=== PATIENT | male | born 1940 | race Caucasian/White ===

== ENCOUNTER 2017-05-06 12:18 | Inpatient (IN) | payer MEDICARE, OTHER ==
[~2017-05-06] VITALS: Ht 175.3 cm; Wt 68.0 kg
[2017-05-06] MEDS ORDERED: SODIUM CHLORIDE 0.9% 1,000 ML IV ONE (12:45)
[2017-05-06] MEDS ORDERED: SODIUM CHLORIDE FLUSH 10ML SYR IVF ONE (13:00)
[2017-05-06] MEDS ORDERED: ASPIRIN 81 MG TABLET CHEW PO ONE (13:00)
[2017-05-06 13:14] LABS: BASOPHILS % (AUTO) 0 % (0-1); EOSINOPHILS # (AUTO) 0.02 x10^3/uL (0-0.4); EOSINOPHILS % (AUTO) 0 % (1-7); LYMPHOCYTES # (AUTO) 0.88 x10^3/uL (1-3.4); LYMPHOCYTES % (AUTO) 10 % (22-44); MD NO; MEAN CORPUSCULAR HEMOGLOBIN 26.3 pg (27.5-34.5); MEAN CORPUSCULAR HGB CONC 32.6 g/dL (33.2-36.2); MEAN CORPUSCULAR VOLUME 80.8 fL (81-97); MEAN PLATELET VOLUME 7.4 fL (7.4-10.4); MONOCYTES # (AUTO) 0.99 x10^3/uL (0.2-0.8); MONOCYTES % (AUTO) 11 % (2-9); NEUTROPHILS # (AUTO) 6.77 x10^3/uL (1.8-6.8); NEUTROPHILS % (AUTO) 78 % (42-75); PLATELET COUNT 345 x10^3/uL (130-400); RED BLOOD COUNT 3.73 x10^6/uL (4.38-5.82); RED CELL DISTRIBUTION WIDTH 16.6 % (9.4-14.8)
[2017-05-06 13:25] LABS: ALBUMIN 3.2 g/dL (3.4-5.0); ANION GAP 11 mmol/L (5-15); CALCIUM 8.3 mg/dL (8.5-10.1); CHLORIDE 101 mmol/L (98-107); CREATININE 1.38 mg/dL (0.7-1.3)
[2017-05-06 13:28] LABS: TROPONIN I < 0.015 ng/mL (0.000-0.045)
[2017-05-06] MEDS ORDERED: SODIUM CHLORIDE 0.9% 1,000ML IVBOLUS ONE (14:00)
[2017-05-06] MEDS ORDERED: KETOROLAC 30 MG/1 ML IVPush ONE (14:30)
[2017-05-06] MEDS ORDERED: KETOROLAC 30 MG/1 ML ONE (15:25)
[2017-05-06] MEDS ORDERED: SODIUM CHLORIDE FLUSH 10ML SYR IVF PRN (16:30)
[2017-05-06] MEDS ORDERED: LOSA100T6 PO (16:31)
[2017-05-06] MEDS ORDERED: DIVA250T14 PO (16:31)
[2017-05-06] MEDS ORDERED: CLOP75TA PO (16:31)
[2017-05-06] MEDS ORDERED: LORA10TA3 PO (16:31)
[2017-05-06] MEDS ORDERED: ASPI-496 PO (16:31)
[2017-05-06] MEDS ORDERED: HYDR12.53 PO (16:31)
[2017-05-06] MEDS ORDERED: CITA20TA9 PO (16:31)
[2017-05-06] MEDS ORDERED: MINE120C TP (16:31)
[2017-05-06] MEDS ORDERED: PRAV20TA2 PO (16:33)
[2017-05-06] MEDS ORDERED: METO25TA35 PO (16:33)
[2017-05-06] MEDS ORDERED: TRAZ50TA18 PO (16:33)
[2017-05-06] MEDS ORDERED: TAMS0.4C2 PO (16:33)
[2017-05-06] MEDS ORDERED: ACET-1600 PO (16:33)
[2017-05-06] MEDS ORDERED: SODIUM CHLORIDE 0.9% 1,000 ML IV SCH (18:12)
[2017-05-06] MEDS ORDERED: hydrALAzine 20 MG/ML, 1ML IVPush PRN (18:30)
[2017-05-06] MEDS ORDERED: ONDANSETRON 2MG/ML, 2ML IVPush PRN (18:30)
[2017-05-06] MEDS ORDERED: ACETAMINOPHEN 325 MG TABLET PO PRN (18:30)
[2017-05-06] MEDS ORDERED: HYDROcodone/APAP 5/325 TABLET PO PRN (18:30)
[2017-05-06] MEDS ORDERED: morphine SULFATE 10 MG/ML, 1ML IVPush PRN (18:30)
[2017-05-06] MEDS ORDERED: ENOXAPARIN 40 MG/0.4 ML SQ SCH (18:30)
[2017-05-06 19:04] LABS: FREE T4 (FREE THYROXINE) 0.99 ng/dL (0.76-1.46); THYROID STIMULATING HORMONE 2.71 mIU/L (0.358-3.740)
[2017-05-06 20:02] VITALS: BP 149/72
[2017-05-06 20:49] LABS: MICROSCOPIC NOT IND
[2017-05-06] MEDS ORDERED: PRAVASTATIN 20 MG TABLET PO SCH (21:00)
[2017-05-06] MEDS ORDERED: TAMSULOSIN 0.4 MG CAP.ER.24H PO SCH (21:00)
[2017-05-06] MEDS: PLEASE ENTER HEIGHT AND WEIGHT MC SCH ×2 (21:00→21:56)
[2017-05-06] MEDS ORDERED: TRAZODONE 50MG TABLET PO SCH (21:00)
[2017-05-06 21:03] LABS: CULTURE INDICATED? NO
[2017-05-06 21:25] LABS: TROPONIN I < 0.015 ng/mL (0.000-0.045)
[2017-05-06] MEDS ORDERED: PRAVASTATIN 40 MG TABLET ONE (21:59)
[2017-05-06] MEDS: METOPROLOL TARTRATE 25 MG TABLET PO SCH (22:01)
[2017-05-06] MEDS: DIVALPROEX 250 MG TAB.ER.24H PO SCH (22:01)
[2017-05-07 01:53] VITALS: BP 116/57
[2017-05-07] MEDS: PLEASE ENTER HEIGHT AND WEIGHT MC SCH (05:00)
[2017-05-07 05:31] LABS: CHLORIDE 105 mmol/L (98-107)
[2017-05-07 05:35] LABS: BASOPHILS # (AUTO) 0.01 x10^3/uL (0-0.1); BASOPHILS % (AUTO) 0 % (0-1); EOSINOPHILS % (AUTO) 2 % (1-7); LYMPHOCYTES # (AUTO) 0.57 x10^3/uL (1-3.4); LYMPHOCYTES % (AUTO) 9 % (22-44); MD NO; MEAN CORPUSCULAR HEMOGLOBIN 26.9 pg (27.5-34.5); MEAN CORPUSCULAR HGB CONC 33.2 g/dL (33.2-36.2); MEAN CORPUSCULAR VOLUME 80.9 fL (81-97); MEAN PLATELET VOLUME 7.6 fL (7.4-10.4); MONOCYTES % (AUTO) 12 % (2-9); NEUTROPHILS # (AUTO) 5.18 x10^3/uL (1.8-6.8); NEUTROPHILS % (AUTO) 78 % (42-75); PLATELET COUNT 305 x10^3/uL (130-400); RED BLOOD COUNT 3.22 x10^6/uL (4.38-5.82); RED CELL DISTRIBUTION WIDTH 16.2 % (9.4-14.8)
[2017-05-07 05:38] LABS: ALANINE AMINOTRANSFERASE 13 U/L (12-78); ALBUMIN 2.8 g/dL (3.4-5.0); ANION GAP 10 mmol/L (5-15); BILIRUBIN,TOTAL 0.4 mg/dL (0.2-1.0); CALCIUM 7.6 mg/dL (8.5-10.1); CREATININE 1.35 mg/dL (0.7-1.3); TOTAL PROTEIN 6.1 g/dL (6.4-8.2); TROPONIN I < 0.015 ng/mL (0.000-0.045)
[2017-05-07 05:40] LABS: % IRON SATURATION 5 % (20-55); ALKALINE PHOSPHATASE 117 U/L (45-117); IRON LEVEL 17 mcg/dL (65-175); TOTAL IRON BINDING CAPACITY 343 mcg/dL (250-450)
[2017-05-07 07:16] VITALS: BP 117/65
[2017-05-07] MEDS ORDERED: CLOPIDOGREL 75 MG TABLET PO SCH (09:00)
[2017-05-07] MEDS ORDERED: ASPIRIN 81 MG TABLET EC PO SCH (09:00)
[2017-05-07] MEDS ORDERED: TEMPLATE NON-FORMULARY MED. (Losartan Potassium** 100 MG) PO SCH (09:00)
[2017-05-07] MEDS ORDERED: LOSARTAN 50MG TABLET PO SCH (09:00)
[2017-05-07] MEDS ORDERED: HYDROCHLOROTHIAZIDE 12.5 MG CAPSULE PO SCH (09:00)
[2017-05-07] MEDS ORDERED: MINERA CRM, 60GM TP SCH (09:00)
[2017-05-07] MEDS ORDERED: CITALOPRAM 20 MG TABLET PO SCH (09:00)
[2017-05-07] MEDS ORDERED: LORATADINE 10 MG TABLET PO SCH (09:00)
[2017-05-07] MEDS ORDERED: REGADENOSON 0.4 MG/5 ML SYRINGE ONE (10:16)
[2017-05-07] MEDS: METOPROLOL TARTRATE 25 MG TABLET PO SCH (12:47)
[2017-05-07] MEDS: DIVALPROEX 250 MG TAB.ER.24H PO SCH (12:48)
[2017-05-07 13:03] VITALS: BP 123/69
[2017-05-07] MEDS ORDERED: FERR325T18 PO (14:53)
[2017-05-07] MEDS ORDERED: PNEUMOCOCCAL 23 VACCINE IM-VACC ONE (16:30)
[2017-05-07] MEDS ORDERED: FLU VACC QS2017-18 (36MOS+) UP/PF 0.5 ML IM-VACC ONE (16:30)
== END 2017-05-07 17:35 | disposition home or self-care (01) | DRG 303 ==
LOC: ED 15:40 → EDIP 16:22 → 5SO 19:45
PROVIDERS: ADMIT Internal Medicine; ATTEND Internal Medicine
DX: I25.119 Atherosclerotic heart disease of native coronary artery with unspecified angina pectoris (principal); N17.9 Acute kidney failure, unspecified; E11.9 Type 2 diabetes mellitus without complications; D64.9 Anemia, unspecified; E78.5 Hyperlipidemia, unspecified; F03.90 Unspecified dementia, unspecified severity, without behavioral disturbance, psychotic disturbance, mood disturbance, and anxiety; I25.2 Old myocardial infarction; F32.9 Major depressive disorder, single episode, unspecified; N40.0 Benign prostatic hyperplasia without lower urinary tract symptoms; I10 Essential (primary) hypertension; Z95.5 Presence of coronary angioplasty implant and graft; Z87.891 Personal history of nicotine dependence; Z90.49 Acquired absence of other specified parts of digestive tract; Z23 Encounter for immunization
CPT/HCPCS: 36415; 71046; 78452; 80048; 80053; 81003; 82040; 83540; 83550; 83735; 83880; 84100; 84439; 84443; 84484; 85025; 90686; 90732; 93005; 93017; 93306; 96361; 96374; J1650; J1885; J2785; A9502; C9898; J7030

== ENCOUNTER 2017-06-08 14:37 | Inpatient (IN) | payer MEDICARE, OTHER ==
[~2017-06-08] VITALS: Ht 170.2 cm; Wt 64.6 kg
[~2017-06-08 14:37] MED LIST: ACET-1600 PO; ASPI-496 PO; CITA20TA9 PO; CLOP75TA PO; DIVA250T14 PO; DOCU-131 PO; ERGO500017 PO; FERR325T18 PO; HYDR12.53 PO; LORA10TA3 PO; LOSA100T6 PO; METO25TA35 PO; MINE120C TP; PRAV20TA2 PO; TAMS0.4C2 PO; TRAM-47 PO; TRAZ50TA18 PO
[2017-06-08] MEDS ORDERED: HYDR12.53 PO (14:59)
[2017-06-08] MEDS ORDERED: SODIUM CHLORIDE FLUSH 10ML SYR IVF ONE (15:00)
[2017-06-08 15:36] LABS: BASOPHILS % (AUTO) 0 % (0-1); EOSINOPHILS # (AUTO) 0.01 x10^3/uL (0-0.4); EOSINOPHILS % (AUTO) 0 % (1-7); LYMPHOCYTES # (AUTO) 0.38 x10^3/uL (1-3.4); LYMPHOCYTES % (AUTO) 3 % (22-44); MD NO; MEAN CORPUSCULAR HEMOGLOBIN 26.3 pg (27.5-34.5); MEAN CORPUSCULAR HGB CONC 32.2 g/dL (33.2-36.2); MEAN CORPUSCULAR VOLUME 81.6 fL (81-97); MEAN PLATELET VOLUME 7.6 fL (7.4-10.4); MONOCYTES # (AUTO) 0.68 x10^3/uL (0.2-0.8); MONOCYTES % (AUTO) 6 % (2-9); NEUTROPHILS # (AUTO) 11.05 x10^3/uL (1.8-6.8); NEUTROPHILS % (AUTO) 91 % (42-75); PLATELET COUNT 314 x10^3/uL (130-400); RED BLOOD COUNT 3.66 x10^6/uL (4.38-5.82); RED CELL DISTRIBUTION WIDTH 17.5 % (9.4-14.8)
[2017-06-08 15:43] LABS: INTERNATIONAL NORMALIZED RATIO 1.05 (0.93-1.1); PROTHROMBIN TIME 10.8 Seconds (9.6-11.5)
[2017-06-08 15:46] LABS: ALANINE AMINOTRANSFERASE 16 U/L (12-78); ANION GAP 12 mmol/L (5-15); CALCIUM 7.9 mg/dL (8.5-10.1); CHLORIDE 108 mmol/L (98-107); CREATININE 2.24 mg/dL (0.7-1.3)
[2017-06-08 15:50] LABS: ALKALINE PHOSPHATASE 128 U/L (45-117); BILIRUBIN,TOTAL 0.5 mg/dL (0.2-1.0); TOTAL PROTEIN 7.2 g/dL (6.4-8.2)
[2017-06-08 15:53] LABS: TROPONIN I 0.178 ng/mL (0.000-0.045)
[2017-06-08] MEDS ORDERED: CEFTRIAXONE PMX 1GM/50ML 50 ML IVPB ONE (16:00)
[2017-06-08] MEDS ORDERED: SODIUM CHLORIDE 0.9% 1,000ML IVBOLUS ONE (16:00)
[2017-06-08] MEDS ORDERED: AZITHROMYCIN 500 MG in SODIUM CHLORIDE 0.9% 250 ML IVPB ONE (16:00)
[2017-06-08] MEDS ORDERED: CEFTRIAXONE PMX 1GM/50ML 50 ML ONE (16:54)
[2017-06-08] MEDS ORDERED: SODIUM CHLORIDE FLUSH 10ML SYR IVF PRN (17:00)
[2017-06-08] MEDS ORDERED: NITROGLYCERIN 0.4 MG BOTTLE (25 TABS) SL PRN (17:30)
[2017-06-08] MEDS ORDERED: DEXTROSE 4 GM TAB.CHEW PO PRN (17:30)
[2017-06-08] MEDS ORDERED: DEXTROSE 50%, 50ML SYRINGE IVPush PRN (17:30)
[2017-06-08] MEDS ORDERED: ONDANSETRON 2MG/ML, 2ML IVPush PRN (17:30)
[2017-06-08] MEDS ORDERED: BISACODYL 10 MG SUPP PR PRN (17:30)
[2017-06-08] MEDS ORDERED: LABETALOL 5MG/ML, 20ML IVPush PRN (17:30)
[2017-06-08] MEDS ORDERED: hydrALAzine 20 MG/ML, 1ML IVPush PRN (17:30)
[2017-06-08] MEDS ORDERED: SODIUM CHLORIDE 0.9% 1,000 ML IV SCH (17:30)
[2017-06-08] MEDS ORDERED: ACETAMINOPHEN 325 MG TABLET PO PRN (17:30)
[2017-06-08] MEDS ORDERED: GLUCAGON 1 MG IM PRN (17:30)
[2017-06-08] MEDS ORDERED: CEFTRIAXONE PMX 1GM/50ML 50 ML IV SCH (18:00)
[2017-06-08] MEDS ORDERED: AZITHROMYCIN 500 MG in SODIUM CHLORIDE 0.9% 250 ML IV SCH (18:00)
[2017-06-08] MEDS ORDERED: PHARMACY MAY ADJ FOR RENAL FX MC PRN (18:00)
[2017-06-08 18:27] LABS: TROPONIN I 0.136 ng/mL (0.000-0.045)
[2017-06-08 19:55] VITALS: BP 110/71
[2017-06-08 20:30] VITALS: BP 110/70
[2017-06-08 21:00] VITALS: BP 110/70
[2017-06-08] MEDS ORDERED: PRAVASTATIN 40 MG TABLET ONE (21:30)
[2017-06-08] MEDS: ERGOCALCIFEROL 50,000 UNIT CAPSULE PO SCH (21:36)
[2017-06-08] MEDS: TAMSULOSIN 0.4 MG CAP.ER.24H PO SCH (21:36)
[2017-06-08] MEDS: HEPARIN 5,000 UNITS/ML, 1ML SQ SCH (21:36)
[2017-06-08] MEDS: PRAVASTATIN 20 MG TABLET PO SCH (21:37)
[2017-06-08] MEDS: SODIUM CHLORIDE FLUSH 10ML SYR IVF SCH (21:37)
[2017-06-08] MEDS: FERROUS SULFATE 325 MG TABLET PO SCH (21:38)
[2017-06-08] MEDS: INSULIN LISPRO 100 UNITS/ML, PEN SQ-INSULIN SCH (21:39)
[2017-06-08 22:18] LABS: MICROSCOPIC AUTO
[2017-06-08 22:29] LABS: CULTURE INDICATED? NO
[2017-06-08 23:54] LABS: TROPONIN I 0.132 ng/mL (0.000-0.045)
[2017-06-09 00:42] VITALS: BP 94/61
[2017-06-09 05:04] LABS: BASOPHILS # (AUTO) 0.01 x10^3/uL (0-0.1); BASOPHILS % (AUTO) 0 % (0-1); EOSINOPHILS # (AUTO) 0.23 x10^3/uL (0-0.4); EOSINOPHILS % (AUTO) 3 % (1-7); LYMPHOCYTES # (AUTO) 0.65 x10^3/uL (1-3.4); LYMPHOCYTES % (AUTO) 9 % (22-44); MD NO; MEAN CORPUSCULAR HEMOGLOBIN 26.3 pg (27.5-34.5); MEAN CORPUSCULAR HGB CONC 32.2 g/dL (33.2-36.2); MEAN CORPUSCULAR VOLUME 81.8 fL (81-97); MEAN PLATELET VOLUME 7.2 fL (7.4-10.4); MONOCYTES # (AUTO) 0.74 x10^3/uL (0.2-0.8); MONOCYTES % (AUTO) 10 % (2-9); NEUTROPHILS # (AUTO) 5.84 x10^3/uL (1.8-6.8); NEUTROPHILS % (AUTO) 78 % (42-75); PLATELET COUNT 280 x10^3/uL (130-400); RED BLOOD COUNT 3.19 x10^6/uL (4.38-5.82); RED CELL DISTRIBUTION WIDTH 18.7 % (9.4-14.8)
[2017-06-09 05:15] LABS: CHLORIDE 116 mmol/L (98-107)
[2017-06-09 05:30] LABS: ALANINE AMINOTRANSFERASE 14 U/L (12-78); ALBUMIN 2.5 g/dL (3.4-5.0); ALKALINE PHOSPHATASE 101 U/L (45-117); ANION GAP 11 mmol/L (5-15); BILIRUBIN,TOTAL 0.4 mg/dL (0.2-1.0); CALCIUM 7.6 mg/dL (8.5-10.1); CREATININE 1.84 mg/dL (0.7-1.3); TOTAL PROTEIN 6.1 g/dL (6.4-8.2)
[2017-06-09] MEDS: HEPARIN 5,000 UNITS/ML, 1ML SQ SCH ×3 (06:11→20:51)
[2017-06-09] MEDS: INSULIN LISPRO 100 UNITS/ML, PEN SQ-INSULIN SCH ×4 (07:00→20:50)
[2017-06-09 07:16] VITALS: BP 93/56
[2017-06-09] MEDS: SODIUM CHLORIDE FLUSH 10ML SYR IVF SCH ×2 (09:00→21:00)
[2017-06-09] MEDS: ASPIRIN 81 MG TABLET EC PO SCH (09:07)
[2017-06-09] MEDS: D5%-0.45% NACL 1,000 ML IV SCH (09:07)
[2017-06-09] MEDS: CITALOPRAM 20 MG TABLET PO SCH (09:08)
[2017-06-09] MEDS: CLOPIDOGREL 75 MG TABLET PO SCH (09:08)
[2017-06-09] MEDS: ACETAMINOPHEN 500 MG TABLET PO SCH ×2 (09:08→20:51)
[2017-06-09] MEDS: FERROUS SULFATE 325 MG TABLET PO SCH ×3 (09:08→20:51)
[2017-06-09] MEDS: LORATADINE 10 MG TABLET PO SCH (09:08)
[2017-06-09 15:09] VITALS: BP 119/65
[2017-06-09] MEDS: CEFTRIAXONE PMX 1GM/50ML 50 ML IV SCH (17:50)
[2017-06-09] MEDS: AZITHROMYCIN 500 MG in SODIUM CHLORIDE 0.9% 250 ML IV SCH (18:25)
[2017-06-09 18:34] VITALS: BP 115/68
[2017-06-09] MEDS: TAMSULOSIN 0.4 MG CAP.ER.24H PO SCH (20:51)
[2017-06-09] MEDS: PRAVASTATIN 20 MG TABLET PO SCH (21:00)
[2017-06-09] MEDS ORDERED: PRAVASTATIN 40 MG TABLET ONE (23:32)
[2017-06-10 00:56] VITALS: BP 130/76
[2017-06-10] MEDS: D5%-0.45% NACL 1,000 ML IV SCH (03:30)
[2017-06-10 05:40] LABS: BASOPHILS % (AUTO) 0 % (0-1); EOSINOPHILS # (AUTO) 0.53 x10^3/uL (0-0.4); EOSINOPHILS % (AUTO) 7 % (1-7); LYMPHOCYTES # (AUTO) 0.94 x10^3/uL (1-3.4); LYMPHOCYTES % (AUTO) 12 % (22-44); MD NO; MEAN CORPUSCULAR HEMOGLOBIN 26.8 pg (27.5-34.5); MEAN CORPUSCULAR HGB CONC 32.8 g/dL (33.2-36.2); MEAN CORPUSCULAR VOLUME 81.7 fL (81-97); MEAN PLATELET VOLUME 7.1 fL (7.4-10.4); MONOCYTES % (AUTO) 9 % (2-9); NEUTROPHILS # (AUTO) 5.71 x10^3/uL (1.8-6.8); NEUTROPHILS % (AUTO) 72 % (42-75); PLATELET COUNT 306 x10^3/uL (130-400); RED BLOOD COUNT 3.14 x10^6/uL (4.38-5.82); RED CELL DISTRIBUTION WIDTH 18.2 % (9.4-14.8)
[2017-06-10 05:44] LABS: ALANINE AMINOTRANSFERASE 16 U/L (12-78); ALBUMIN 2.4 g/dL (3.4-5.0); ANION GAP 9 mmol/L (5-15); CALCIUM 7.3 mg/dL (8.5-10.1); CHLORIDE 111 mmol/L (98-107); CREATININE 1.43 mg/dL (0.7-1.3)
[2017-06-10 05:46] LABS: ALKALINE PHOSPHATASE 111 U/L (45-117); BILIRUBIN,TOTAL 0.3 mg/dL (0.2-1.0); TOTAL PROTEIN 5.7 g/dL (6.4-8.2)
[2017-06-10] MEDS: HEPARIN 5,000 UNITS/ML, 1ML SQ SCH ×3 (06:28→22:40)
[2017-06-10] MEDS ORDERED: POTASSIUM CHLORIDE 20 MEQ PACKET PO ONE (07:30)
[2017-06-10] MEDS: INSULIN LISPRO 100 UNITS/ML, PEN SQ-INSULIN SCH ×4 (07:43→20:22)
[2017-06-10] MEDS: ASPIRIN 81 MG TABLET EC PO SCH (08:47)
[2017-06-10] MEDS: FERROUS SULFATE 325 MG TABLET PO SCH ×3 (08:47→20:17)
[2017-06-10] MEDS: ACETAMINOPHEN 500 MG TABLET PO SCH ×2 (08:47→20:17)
[2017-06-10] MEDS: CITALOPRAM 20 MG TABLET PO SCH (08:47)
[2017-06-10] MEDS: CLOPIDOGREL 75 MG TABLET PO SCH (08:47)
[2017-06-10] MEDS: SODIUM CHLORIDE FLUSH 10ML SYR IVF SCH ×2 (08:47→20:18)
[2017-06-10] MEDS: LORATADINE 10 MG TABLET PO SCH (08:47)
[2017-06-10] MEDS: D5%-0.45NACL+KCL 20MEQ 1,000 ML IV SCH (08:51)
[2017-06-10 08:53] VITALS: BP 157/73
[2017-06-10 09:36] VITALS: BP 118/77
[2017-06-10] MEDS ORDERED: METOPROLOL 1 MG/ML, 5ML ONE (09:39)
[2017-06-10 09:48] VITALS: BP 102/69
[2017-06-10] MEDS ORDERED: METOPROLOL 1 MG/ML, 5ML IVPush ONE (10:00)
[2017-06-10 13:12] VITALS: BP 150/82
[2017-06-10] MEDS: CEFTRIAXONE PMX 1GM/50ML 50 ML IV SCH (18:16)
[2017-06-10] MEDS: AZITHROMYCIN 500 MG in SODIUM CHLORIDE 0.9% 250 ML IV SCH (18:17)
[2017-06-10 20:07] VITALS: BP 131/69
[2017-06-10] MEDS: TAMSULOSIN 0.4 MG CAP.ER.24H PO SCH (20:17)
[2017-06-10] MEDS: PRAVASTATIN 20 MG TABLET PO SCH (20:17)
[2017-06-11 01:46] VITALS: BP 139/72
[2017-06-11] MEDS: D5%-0.45NACL+KCL 20MEQ 1,000 ML IV SCH (05:21)
[2017-06-11 05:25] LABS: BASOPHILS # (AUTO) 0.01 x10^3/uL (0-0.1); BASOPHILS % (AUTO) 0 % (0-1); CHLORIDE 111 mmol/L (98-107); EOSINOPHILS # (AUTO) 0.21 x10^3/uL (0-0.4); EOSINOPHILS % (AUTO) 3 % (1-7); LYMPHOCYTES # (AUTO) 0.57 x10^3/uL (1-3.4); LYMPHOCYTES % (AUTO) 8 % (22-44); MD NO; MEAN CORPUSCULAR HEMOGLOBIN 26.8 pg (27.5-34.5); MEAN CORPUSCULAR HGB CONC 33.2 g/dL (33.2-36.2); MEAN CORPUSCULAR VOLUME 80.7 fL (81-97); MEAN PLATELET VOLUME 7.2 fL (7.4-10.4); MONOCYTES # (AUTO) 0.69 x10^3/uL (0.2-0.8); MONOCYTES % (AUTO) 10 % (2-9); NEUTROPHILS # (AUTO) 5.52 x10^3/uL (1.8-6.8); NEUTROPHILS % (AUTO) 79 % (42-75); PLATELET COUNT 380 x10^3/uL (130-400); RED BLOOD COUNT 3.18 x10^6/uL (4.38-5.82); RED CELL DISTRIBUTION WIDTH 18.2 % (9.4-14.8)
[2017-06-11 05:30] LABS: ANION GAP 10 mmol/L (5-15); CALCIUM 7.6 mg/dL (8.5-10.1); CREATININE 1.11 mg/dL (0.7-1.3)
[2017-06-11] MEDS: HEPARIN 5,000 UNITS/ML, 1ML SQ SCH ×3 (06:47→22:34)
[2017-06-11] MEDS: INSULIN LISPRO 100 UNITS/ML, PEN SQ-INSULIN SCH ×4 (07:00→20:08)
[2017-06-11] MEDS: ASPIRIN 81 MG TABLET EC PO SCH (08:35)
[2017-06-11] MEDS: CITALOPRAM 20 MG TABLET PO SCH (08:35)
[2017-06-11] MEDS: ACETAMINOPHEN 500 MG TABLET PO SCH ×2 (08:35→20:08)
[2017-06-11] MEDS: FERROUS SULFATE 325 MG TABLET PO SCH ×3 (08:35→20:08)
[2017-06-11] MEDS: CLOPIDOGREL 75 MG TABLET PO SCH (08:36)
[2017-06-11] MEDS: SODIUM CHLORIDE FLUSH 10ML SYR IVF SCH ×2 (08:36→20:08)
[2017-06-11] MEDS: LORATADINE 10 MG TABLET PO SCH (08:36)
[2017-06-11 08:47] VITALS: BP 118/75
[2017-06-11 15:55] VITALS: BP 146/77
[2017-06-11] MEDS: CEFTRIAXONE PMX 1GM/50ML 50 ML IV SCH (17:37)
[2017-06-11] MEDS: AZITHROMYCIN 500 MG in SODIUM CHLORIDE 0.9% 250 ML IV SCH (18:02)
[2017-06-11 19:29] VITALS: BP 118/70
[2017-06-11] MEDS: TAMSULOSIN 0.4 MG CAP.ER.24H PO SCH (20:08)
[2017-06-11] MEDS: PRAVASTATIN 20 MG TABLET PO SCH (20:08)
[2017-06-12 00:32] VITALS: BP 135/73
[2017-06-12] MEDS: D5%-0.45NACL+KCL 20MEQ 1,000 ML IV SCH (02:07)
[2017-06-12 05:49] LABS: CHLORIDE 111 mmol/L (98-107)
[2017-06-12 06:02] LABS: ANION GAP 12 mmol/L (5-15); CALCIUM 7.2 mg/dL (8.5-10.1); CREATININE 0.87 mg/dL (0.7-1.3)
[2017-06-12] MEDS: HEPARIN 5,000 UNITS/ML, 1ML SQ SCH ×3 (06:29→22:24)
[2017-06-12] MEDS: INSULIN LISPRO 100 UNITS/ML, PEN SQ-INSULIN SCH ×4 (07:00→21:00)
[2017-06-12 07:52] VITALS: BP 152/73
[2017-06-12] MEDS: ASPIRIN 81 MG TABLET EC PO SCH (08:35)
[2017-06-12] MEDS: LORATADINE 10 MG TABLET PO SCH (08:36)
[2017-06-12] MEDS: FERROUS SULFATE 325 MG TABLET PO SCH ×3 (08:36→20:28)
[2017-06-12] MEDS: CITALOPRAM 20 MG TABLET PO SCH (08:36)
[2017-06-12] MEDS: CLOPIDOGREL 75 MG TABLET PO SCH (08:36)
[2017-06-12] MEDS: ACETAMINOPHEN 500 MG TABLET PO SCH ×2 (08:36→20:28)
[2017-06-12] MEDS: SODIUM CHLORIDE FLUSH 10ML SYR IVF SCH ×2 (08:37→22:24)
[2017-06-12] MEDS: DOCUSATE 100 MG CAPSULE PO PRN ×2 (08:44→20:30)
[2017-06-12] MEDS: POLYETHYLENE GLYCOL 17 GM PACKET PO PRN (08:44)
[2017-06-12 13:00] VITALS: BP 136/86
[2017-06-12] MEDS: CEFTRIAXONE PMX 1GM/50ML 50 ML IV SCH (17:23)
[2017-06-12] MEDS: AZITHROMYCIN 500 MG in SODIUM CHLORIDE 0.9% 250 ML IV SCH (18:24)
[2017-06-12 19:17] VITALS: BP 144/83
[2017-06-12] MEDS: MORPHINE SULFATE 4 MG/ML, 1ML IVPush PRN (20:00)
[2017-06-12] MEDS: TAMSULOSIN 0.4 MG CAP.ER.24H PO SCH (20:28)
[2017-06-12] MEDS: PRAVASTATIN 20 MG TABLET PO SCH (20:28)
[2017-06-13 01:51] VITALS: BP 142/72
[2017-06-13] MEDS: MORPHINE SULFATE 4 MG/ML, 1ML IVPush PRN (03:38)
[2017-06-13] MEDS: HEPARIN 5,000 UNITS/ML, 1ML SQ SCH ×3 (05:44→22:55)
[2017-06-13] MEDS: INSULIN LISPRO 100 UNITS/ML, PEN SQ-INSULIN SCH ×4 (07:00→21:00)
[2017-06-13] MEDS: ASPIRIN 81 MG TABLET EC PO SCH (07:43)
[2017-06-13] MEDS: SODIUM CHLORIDE FLUSH 10ML SYR IVF SCH ×2 (07:43→22:55)
[2017-06-13] MEDS: FERROUS SULFATE 325 MG TABLET PO SCH ×3 (07:43→20:46)
[2017-06-13] MEDS: LORATADINE 10 MG TABLET PO SCH (07:43)
[2017-06-13] MEDS: CITALOPRAM 20 MG TABLET PO SCH (07:43)
[2017-06-13] MEDS: ACETAMINOPHEN 500 MG TABLET PO SCH ×2 (07:44→20:46)
[2017-06-13] MEDS: CLOPIDOGREL 75 MG TABLET PO SCH (07:44)
[2017-06-13 08:06] VITALS: BP 143/79
[2017-06-13 08:10] LABS: ANION GAP 12 mmol/L (5-15); CHLORIDE 111 mmol/L (98-107); CREATININE 1.03 mg/dL (0.7-1.3)
[2017-06-13] MEDS ORDERED: HEPA50002 SQ (10:43)
[2017-06-13] MEDS ORDERED: CEFD300C37 PO (10:43)
[2017-06-13] MEDS: METOPROLOL TARTRATE 25 MG TABLET PO SCH ×2 (11:39→20:47)
[2017-06-13] MEDS: POTASSIUM CHLORIDE 20 MEQ PACKET PO SCH (11:40)
[2017-06-13 12:10] VITALS: BP 150/82
[2017-06-13 14:15] VITALS: BP 150/106
[2017-06-13 14:56] VITALS: BP 161/82
[2017-06-13] MEDS: POLYETHYLENE GLYCOL 17 GM PACKET PO PRN (16:19)
[2017-06-13] MEDS: CEFTRIAXONE PMX 1GM/50ML 50 ML IV SCH (17:47)
[2017-06-13] MEDS: AZITHROMYCIN 500 MG in SODIUM CHLORIDE 0.9% 250 ML IV SCH (18:29)
[2017-06-13 19:39] VITALS: BP 126/66
[2017-06-13] MEDS: TAMSULOSIN 0.4 MG CAP.ER.24H PO SCH (20:46)
[2017-06-13] MEDS: TRAZODONE 50MG TABLET PO SCH (20:46)
[2017-06-13] MEDS: PRAVASTATIN 20 MG TABLET PO SCH (20:47)
[2017-06-14 01:24] VITALS: BP 96/52
[2017-06-14] MEDS: HEPARIN 5,000 UNITS/ML, 1ML SQ SCH ×3 (06:18→22:33)
[2017-06-14 06:59] VITALS: BP 121/58
[2017-06-14] MEDS: INSULIN LISPRO 100 UNITS/ML, PEN SQ-INSULIN SCH ×4 (07:00→20:16)
[2017-06-14] MEDS: POTASSIUM CHLORIDE 20 MEQ PACKET PO SCH (08:00)
[2017-06-14] MEDS: LORATADINE 10 MG TABLET PO SCH (09:15)
[2017-06-14] MEDS: FERROUS SULFATE 325 MG TABLET PO SCH ×3 (09:16→21:00)
[2017-06-14] MEDS: CLOPIDOGREL 75 MG TABLET PO SCH (09:16)
[2017-06-14] MEDS: ASPIRIN 81 MG TABLET EC PO SCH (09:16)
[2017-06-14] MEDS: SODIUM CHLORIDE FLUSH 10ML SYR IVF SCH ×2 (09:16→19:01)
[2017-06-14] MEDS: METOPROLOL TARTRATE 25 MG TABLET PO SCH ×2 (09:16→21:00)
[2017-06-14] MEDS: ACETAMINOPHEN 500 MG TABLET PO SCH ×2 (09:16→21:00)
[2017-06-14] MEDS: CITALOPRAM 20 MG TABLET PO SCH (09:16)
[2017-06-14] MEDS: HYDROCHLOROTHIAZIDE 12.5 MG CAPSULE PO SCH (09:16)
[2017-06-14 13:18] VITALS: BP 91/55
[2017-06-14] MEDS ORDERED: NS + 20MEQ KCL 1,000 ML IV SCH (15:30)
[2017-06-14] MEDS: CEFTRIAXONE PMX 1GM/50ML 50 ML IV SCH (17:53)
[2017-06-14] MEDS: AZITHROMYCIN 500 MG in SODIUM CHLORIDE 0.9% 250 ML IV SCH ×2 (18:35→19:00)
[2017-06-14 18:41] VITALS: BP 105/63
[2017-06-14 19:53] VITALS: BP 126/76
[2017-06-14] MEDS: TRAZODONE 50MG TABLET PO SCH (21:00)
[2017-06-14] MEDS: PRAVASTATIN 20 MG TABLET PO SCH (21:00)
[2017-06-14] MEDS: TAMSULOSIN 0.4 MG CAP.ER.24H PO SCH (21:00)
[2017-06-15 01:46] VITALS: BP 119/66
[2017-06-15 05:55] LABS: CHLORIDE 115 mmol/L (98-107)
[2017-06-15 05:56] LABS: BASOPHILS # (AUTO) 0.02 x10^3/uL (0-0.1); BASOPHILS % (AUTO) 0 % (0-1); EOSINOPHILS # (AUTO) 0.23 x10^3/uL (0-0.4); EOSINOPHILS % (AUTO) 3 % (1-7); LYMPHOCYTES # (AUTO) 0.95 x10^3/uL (1-3.4); LYMPHOCYTES % (AUTO) 11 % (22-44); MD NO; MEAN CORPUSCULAR HEMOGLOBIN 26.2 pg (27.5-34.5); MEAN CORPUSCULAR HGB CONC 32.1 g/dL (33.2-36.2); MEAN CORPUSCULAR VOLUME 81.7 fL (81-97); MEAN PLATELET VOLUME 6.8 fL (7.4-10.4); MONOCYTES # (AUTO) 0.53 x10^3/uL (0.2-0.8); MONOCYTES % (AUTO) 6 % (2-9); NEUTROPHILS # (AUTO) 6.83 x10^3/uL (1.8-6.8); NEUTROPHILS % (AUTO) 80 % (42-75); PLATELET COUNT 677 x10^3/uL (130-400); RED BLOOD COUNT 3.56 x10^6/uL (4.38-5.82); RED CELL DISTRIBUTION WIDTH 18.7 % (9.4-14.8)
[2017-06-15] MEDS: HEPARIN 5,000 UNITS/ML, 1ML SQ SCH ×3 (06:07→22:00)
[2017-06-15 06:20] LABS: ANION GAP 13 mmol/L (5-15); CALCIUM 8.1 mg/dL (8.5-10.1); CREATININE 1.04 mg/dL (0.7-1.3)
[2017-06-15] MEDS: INSULIN LISPRO 100 UNITS/ML, PEN SQ-INSULIN SCH ×4 (07:00→20:50)
[2017-06-15] MEDS: FERROUS SULFATE 325 MG TABLET PO SCH ×3 (07:02→19:55)
[2017-06-15] MEDS: POTASSIUM CHLORIDE 20 MEQ PACKET PO SCH (07:02)
[2017-06-15] MEDS: CITALOPRAM 20 MG TABLET PO SCH (07:02)
[2017-06-15] MEDS: ASPIRIN 81 MG TABLET EC PO SCH (07:02)
[2017-06-15] MEDS: LORATADINE 10 MG TABLET PO SCH (07:02)
[2017-06-15] MEDS: HYDROCHLOROTHIAZIDE 12.5 MG CAPSULE PO SCH (07:03)
[2017-06-15] MEDS: METOPROLOL TARTRATE 25 MG TABLET PO SCH ×2 (07:03→19:56)
[2017-06-15] MEDS: CLOPIDOGREL 75 MG TABLET PO SCH (07:03)
[2017-06-15] MEDS: ACETAMINOPHEN 500 MG TABLET PO SCH ×2 (07:03→19:56)
[2017-06-15] MEDS: MORPHINE SULFATE 4 MG/ML, 1ML IVPush PRN ×4 (07:24→22:07)
[2017-06-15] MEDS: SODIUM CHLORIDE FLUSH 10ML SYR IVF SCH ×2 (07:24→22:07)
[2017-06-15 07:31] VITALS: BP 143/72
[2017-06-15 13:47] VITALS: BP 140/70
[2017-06-15] MEDS: ERGOCALCIFEROL 50,000 UNIT CAPSULE PO SCH (15:39)
[2017-06-15] MEDS: NS + 20MEQ KCL 1,000 ML IV SCH (16:28)
[2017-06-15] MEDS: CEFTRIAXONE PMX 1GM/50ML 50 ML IV SCH (17:25)
[2017-06-15] MEDS: AZITHROMYCIN 500 MG in SODIUM CHLORIDE 0.9% 250 ML IV SCH (17:26)
[2017-06-15 18:44] VITALS: BP 136/72
[2017-06-15] MEDS: TRAZODONE 50MG TABLET PO SCH (19:55)
[2017-06-15] MEDS: TAMSULOSIN 0.4 MG CAP.ER.24H PO SCH (19:55)
[2017-06-15] MEDS: PRAVASTATIN 20 MG TABLET PO SCH (19:56)
[2017-06-16] MEDS: MORPHINE SULFATE 4 MG/ML, 1ML IVPush PRN ×3 (02:41→12:17)
[2017-06-16] MEDS: NS + 20MEQ KCL 1,000 ML IV SCH (05:48)
[2017-06-16] MEDS: HEPARIN 5,000 UNITS/ML, 1ML SQ SCH ×2 (06:00→14:00)
[2017-06-16 07:31] VITALS: BP 153/75
[2017-06-16] MEDS: INSULIN LISPRO 100 UNITS/ML, PEN SQ-INSULIN SCH ×2 (08:07→10:39)
[2017-06-16] MEDS: POTASSIUM CHLORIDE 20 MEQ PACKET PO SCH (08:08)
[2017-06-16] MEDS: LORATADINE 10 MG TABLET PO SCH (08:08)
[2017-06-16] MEDS: CITALOPRAM 20 MG TABLET PO SCH (08:08)
[2017-06-16] MEDS: ASPIRIN 81 MG TABLET EC PO SCH (08:08)
[2017-06-16] MEDS: CLOPIDOGREL 75 MG TABLET PO SCH (08:09)
[2017-06-16] MEDS: FERROUS SULFATE 325 MG TABLET PO SCH (08:09)
[2017-06-16] MEDS: METOPROLOL TARTRATE 25 MG TABLET PO SCH (08:09)
[2017-06-16] MEDS: ACETAMINOPHEN 500 MG TABLET PO SCH (08:09)
[2017-06-16] MEDS: HYDROCHLOROTHIAZIDE 12.5 MG CAPSULE PO SCH (08:09)
[2017-06-16] MEDS: SODIUM CHLORIDE FLUSH 10ML SYR IVF SCH (08:42)
== END 2017-06-16 15:22 | disposition hospice, home (50) | DRG 871 ==
LOC: ED 15:52 → EDIP 16:47 → 5SO 19:52 → 3NE 06-12 12:43
PROVIDERS: ADMIT Hospitalist; ATTEND Hospitalist
DX: A41.9 Sepsis, unspecified organism (principal); J96.01 Acute respiratory failure with hypoxia; N17.0 Acute kidney failure with tubular necrosis; R65.21 Severe sepsis with septic shock; J15.9 Unspecified bacterial pneumonia; E87.8 Other disorders of electrolyte and fluid balance, not elsewhere classified; I48.0 Paroxysmal atrial fibrillation; R13.10 Dysphagia, unspecified; D63.8 Anemia in other chronic diseases classified elsewhere; S22.42XA Multiple fractures of ribs, left side, initial encounter for closed fracture; S42.215A Unspecified nondisplaced fracture of surgical neck of left humerus, initial encounter for closed fracture; E11.9 Type 2 diabetes mellitus without complications; E86.0 Dehydration; F03.90 Unspecified dementia, unspecified severity, without behavioral disturbance, psychotic disturbance, mood disturbance, and anxiety; E55.9 Vitamin D deficiency, unspecified; E78.5 Hyperlipidemia, unspecified; F32.9 Major depressive disorder, single episode, unspecified; I10 Essential (primary) hypertension; I25.10 Atherosclerotic heart disease of native coronary artery without angina pectoris; I25.2 Old myocardial infarction; I35.1 Nonrheumatic aortic (valve) insufficiency; N40.1 Benign prostatic hyperplasia with lower urinary tract symptoms; R33.8 Other retention of urine; Z66 Do not resuscitate; W18.39XA Other fall on same level, initial encounter; Y93.89 Activity, other specified; Y92.89 Other specified places as the place of occurrence of the external cause; Y99.8 Other external cause status
CPT/HCPCS: 36415; 71045; 74230; 80048; 80053; 81001; 82962; 83605; 83735; 83880; 84100; 84145; 84484; 85025; 85610; 85730; 87040; 93005; 93306; 96365; J0456; J0696; J1644; J3480; J7030; J7050